=== PATIENT | female | born 1935 | race Caucasian/White ===

== ENCOUNTER 2022-05-23 09:52 | Outpatient (CLI) | payer MEDICARE | END 2022-05-23 09:53 | disposition home or self-care (01) | LOC: BICRAD 09:52 | PROVIDERS: ATTEND Family Medicine | DX: M54.50 Low back pain, unspecified (principal) | CPT/HCPCS: 72100 ==

== ENCOUNTER 2023-04-22 14:01 | Outpatient (CLI) | payer MEDICARE | END 2023-04-22 14:02 | disposition home or self-care (01) | LOC: ULT 14:01 | PROVIDERS: ATTEND Psychiatry & Neurology Neurology | DX: I77.89 Other specified disorders of arteries and arterioles (principal); R42 Dizziness and giddiness | CPT/HCPCS: 93880 ==

== ENCOUNTER 2023-06-13 10:46 | Outpatient (CLI) | payer MEDICARE | END 2023-06-13 10:47 | disposition home or self-care (01) | LOC: MRI 10:46 | PROVIDERS: ATTEND Neurological Surgery | DX: R26.89 Other abnormalities of gait and mobility (principal); M47.812 Spondylosis without myelopathy or radiculopathy, cervical region; M50.321 Other cervical disc degeneration at C4-C5 level; M50.323 Other cervical disc degeneration at C6-C7 level; M89.38 Hypertrophy of bone, other site | CPT/HCPCS: 72141 ==

== ENCOUNTER 2023-08-26 12:38 | Outpatient (CLI) | payer MEDICARE | END 2023-08-26 12:39 | disposition home or self-care (01) | LOC: RAD 12:38 | PROVIDERS: ATTEND Neurological Surgery | DX: G62.9 Polyneuropathy, unspecified (principal); M47.812 Spondylosis without myelopathy or radiculopathy, cervical region; M50.321 Other cervical disc degeneration at C4-C5 level; M50.322 Other cervical disc degeneration at C5-C6 level; M50.323 Other cervical disc degeneration at C6-C7 level; M43.12 Spondylolisthesis, cervical region | CPT/HCPCS: 72050 ==